=== PATIENT | male | born 1955 | race African-American/Black ===

== ENCOUNTER 2016-11-10 16:54 | Emergency (ER) | payer OTHER ==
[~2016-11-10] VITALS: Ht 167.6 cm; Wt 85.7 kg
[~2016-11-10 16:54] MED LIST: DORZOLAMIDE HYD10 ML OU; ECO81 PO; HCTZ/LISINOPRIL1 TA2 PO; HYDRALAZINE HCL25 MG PO; LISINOPRIL20 MG PO; LOPRESSOR50 MG PO; LORAZEPAM0.5 MG PO; METOPROLOL SUC100 M2 PO; OMEPRAZOLE DR20 M1 PO; PRI20 PO; TRUOS OU; XALATAN2.5 ML OU; ZOC20 PO
[2016-11-10 17:01] VITALS: BP 148/87
== END 2016-11-10 17:33 | disposition left against medical advice (07) ==
LOC: ED 16:54
DX: Z53.21 Procedure and treatment not carried out due to patient leaving prior to being seen by health care provider (principal)

== ENCOUNTER 2016-12-22 10:10 | Emergency (ER) | payer OTHER ==
[~2016-12-22] VITALS: Ht 170.2 cm; Wt 86.2 kg
[2016-12-22 15:31] VITALS: BP 149/100
== END 2016-12-22 16:17 | disposition home or self-care (01) ==
LOC: ED 10:10
DX: T78.3XXA Angioneurotic edema, initial encounter (principal); I10 Essential (primary) hypertension; F17.210 Nicotine dependence, cigarettes, uncomplicated; Z71.6 Tobacco abuse counseling
CPT/HCPCS: 99406; J0171; J1200; J2930